=== PATIENT | male | born 1980 | race Caucasian/White ===

== ENCOUNTER 2017-05-05 11:11 | Outpatient (RCR) | payer OTHER | END 2017-05-05 12:12 | disposition home or self-care (01) | PROVIDERS: ATTEND Orthopaedic Surgery | DX: S92.352D Displaced fracture of fifth metatarsal bone, left foot, subsequent encounter for fracture with routine healing (principal); S92.342D Displaced fracture of fourth metatarsal bone, left foot, subsequent encounter for fracture with routine healing; S92.332D Displaced fracture of third metatarsal bone, left foot, subsequent encounter for fracture with routine healing; S92.322D Displaced fracture of second metatarsal bone, left foot, subsequent encounter for fracture with routine healing; V89.2XXD Person injured in unspecified motor-vehicle accident, traffic, subsequent encounter ==

== ENCOUNTER → 2018-09-25 | Outpatient (CLI) | payer OTHER | LOC: SLEEP 16:43 | PROVIDERS: ATTEND Otolaryngology Otolaryngology/Facial Plastic Surgery | DX: G47.33 Obstructive sleep apnea (adult) (pediatric) (principal) ==

== ENCOUNTER 2021-09-09 20:01 | Emergency (ER) | payer OTHER ==
[~2021-09-09] VITALS: Ht 188 cm; Wt 131.5 kg
--- NOTE | 2021-09-09 21:03 | ED General ---
General Stated Complaint: CHRONES FLARE UP History of Present Illness Date Seen by Provider: Sep 09, 2021 Time Seen by Provider: 20:58 Initial Comments 40 yr M with PMH of Crohn's Disease/ Hemicolectomy in 2000/ [employer] in 2008/ HTN, is here with c/o LLQ pain which began yesterday and has progressively worsened. Pt thinks he is having a Crohn's flare up. Pt has associated nausea and vomiting, and has noticed dark colored urine. He has not been drinking enough water. Denies chest pain, fever, chills, diarrhea, c onstipation. Allergies and Home Medications Allergies Coded Allergies: hydrocortisone (Verified Allergy, Unknown, 09/09/21) Patient Home Medication List Home Medication List Reviewed: Yes [hydrocortisone] , (Reported) Entered as Reported by: AYUSH DSOUZA MD on 09/09/212111 Last Action: New Order Review of Systems Review of Systems Constitutional: no symptoms reported EENTM: no symptoms reported Respiratory: no symptoms reported Cardiovascular: no symptoms reported Gastrointestinal: LLQ, abdominal pain (LLQ), nausea, vomiting Genitourinary: no symptoms reported Musculoskeletal: no symptoms reported Skin: no symptoms reported Psychiatric/Neurological: No Symptoms Reported Hematologic/Lymphatic: No Symptoms Reported Immunological/Allergic: no symptoms reported Physical Exam Vital Signs Vital Signs - First Documented 09/09/21 20:57 Temp 36.8 Pulse 83 Resp 18 B/P (MAP) 179/108 (131) Pulse Ox 97 O2 Delivery Room Air Capillary Refill : Height, Weight, BMI Height: '" Weight: lbs. oz. kg; BMI Method: General Appearance: WD/WN, Mild Distress HEENT: PERRL/EOMI Neck: Full Range of Motion, Normal Inspection, Non Tender, Supple Respiratory: Chest Non Tender, Lungs Clear, Normal Breath Sounds Cardiovascular: Regular Rate, Rhythm, No Edema Gastrointestinal: Normal Bowel Sounds, No Organomegaly, No Pulsatile Mass, Soft, Tenderness (LLQ) Back: Normal Inspection, No CVA Tenderness, No Vertebral Tenderness Neurologic/Psychiatric: Alert, Oriented x3, No Motor/Sensory Deficits, Normal Mood/Affect Skin: Normal Color Focused Exam Lactate Level 09/09/21 21:30: Lactic Acid Level 2.48*H 09/09/21 23:47: Lactic Acid Level 2.40*H Lactic Acid Level Laboratory Tests Test 09/09/21 21:30 09/09/21 23:47 Lactic Acid Level 2.48 MMOL/L (0.50-2.00) *H 2.40 MMOL/L (0.50-2.00) *H Progress/Results/Core Measures Suspected Sepsis SIRS Temperature: Pulse: Respiratory Rate: Laboratory Tests 09/09/21 21:30: White Blood Count 12.4H Blood Pressure / Mean: 09/09/21 21:30: Lactic Acid Level 2.48*H 09/09/21 23:47: Lactic Acid Level 2.40*H Laboratory Tests 09/09/21 21:30: Creatinine 1.30, Platelet Count 275, Total Bilirubin 0.6 Results/Orders Lab Results Laboratory Tests Test 09/09/21 21:30 09/09/21 22:23 09/09/21 23:47 Range/Units White Blood Count 12.4 H 4.3-11.0 10^3/uL Red Blood Count 4.54 4.30-5.52 10^6/uL Hemoglobin 14.0 13.3-17.7 g/dL Hematocrit 41 40-54 % Mean Corpuscular Volume 90 80-99 fL Mean Corpuscular Hemoglobin 31 25-34 pg Mean Corpuscular Hemoglobin Concent 34 32-36 g/dL Red Cell Distribution Width 13.2 10.0-14.5 % Platelet Count 275 130-400 10^3/uL Mean Platelet Volume 9.8 9.0-12.2 fL Immature Granulocyte % (Auto) 0 % Neutrophils (%) (Auto) 78 H 42-75 % Lymphocytes (%) (Auto) 14 12-44 % Monocytes (%) (Auto) 6 0-12 % Eosinophils (%) (Auto) 1 0-10 % Basophils (%) (Auto) 1 0-10 % Neutrophils # (Auto) 9.6 H 1.8-7.8 10^3/uL Lymphocytes # (Auto) 1.8 1.0-4.0 10^3/uL Monocytes # (Auto) 0.8 0.0-1.0 10^3/uL Eosinophils # (Auto) 0.1 0.0-0.3 10^3/uL Basophils # (Auto) 0.1 0.0-0.1 10^3/uL Immature Granulocyte # (Auto) 0.1 0.0-0.1 10^3/uL Sodium Level 145 135-145 MMOL/L Potassium Level 3.3 L 3.6-5.0 MMOL/L Chloride Level 104 98-107 MMOL/L Carbon Dioxide Level 22 21-32 MMOL/L Anion Gap 19 H 5-14 MMOL/L Blood Urea Nitrogen 10 7-18 MG/DL Creatinine 1.30 0.60-1.30 MG/DL Estimat Glomerular Filtration Rate 70 BUN/Creatinine Ratio 8 Glucose Level 115 H 70-105 MG/DL Lactic Acid Level 2.48 *H 2.40 *H 0.50-2.00 MMOL/L Calcium Level 9.3 8.5-10.1 MG/DL Corrected Calcium 9.0 8.5-10.1 MG/DL Magnesium Level 1.9 1.6-2.4 MG/DL Total Bilirubin 0.6 0.1-1.0 MG/DL Aspartate Amino Transf (AST/SGOT) 34 5-34 U/L Alanine Aminotransferase (ALT/SGPT) 40 0-55 U/L Alkaline Phosphatase 88 40-136 U/L Troponin I < 0.028 <0.028 NG/ML Total Protein 8.0 6.4-8.2 GM/DL Albumin 4.4 3.2-4.5 GM/DL Lipase 25 8-78 U/L Procalcitonin 0.04 <0.10 NG/ML Urine Color YELLOW Urine Clarity CLEAR Urine pH 6.0 5-9 Urine Specific [place] 1.020 1.016-1.022 Urine Protein NEGATIVE NEGATIVE Urine Glucose (UA) NEGATIVE NEGATIVE Urine Ketones NEGATIVE NEGATIVE Urine Nitrite NEGATIVE NEGATIVE Urine Bilirubin NEGATIVE NEGATIVE Urine Urobilinogen 0.2 < = 1.0 MG/DL Urine Leukocyte Esterase NEGATIVE NEGATIVE Urine RBC (Auto) 2+ H NEGATIVE Urine RBC RARE /HPF Urine WBC NONE /HPF Urine Squamous Epithelial Cells NONE /HPF Urine Crystals NONE /LPF Urine Bacteria TRACE /HPF Urine Casts PRESENT /LPF Urine Hyaline Casts RARE /LPF Urine Mucus NEGATIVE /LPF Urine Culture Indicated NO Urine Opiates Screen POSITIVE H NEGATIVE Urine Oxycodone Screen NEGATIVE NEGATIVE Urine Methadone Screen NEGATIVE NEGATIVE Urine Propoxyphene Screen NEGATIVE NEGATIVE Urine Barbiturates Screen NEGATIVE NEGATIVE Ur Tricyclic Antidepressants Screen NEGATIVE NEGATIVE Urine Phencyclidine Screen NEGATIVE NEGATIVE Urine Amphetamines Screen NEGATIVE NEGATIVE Urine Methamphetamines Screen NEGATIVE NEGATIVE Urine Benzodiazepines Screen NEGATIVE NEGATIVE Urine Cocaine Screen NEGATIVE NEGATIVE Urine Cannabinoids Screen NEGATIVE NEGATIVE My Orders Orders - AYUSH DSOUZA MD Cbc With Automated Diff (09/09/21 21:14) Comprehensive Metabolic Panel (09/09/21 21:14) Drug Screen Stat (Urine) (09/09/21 21:14) Lactic Acid Analyzer (09/09/21 21:14) Lipase (09/09/21 21:14) Magnesium (09/09/21 21:14) Procalcitonin (Pct) (09/09/21 21:14) Ua Culture If Indicated (09/09/21 21:14) Troponin I Nata (09/09/21 21:14) Ct Abdomen/Pelvis W (09/09/21 21:15) Ed Iv/Invasive Line Start (09/09/21 21:15) Ed Iv/Invasive Line Start (09/09/21 21:29) Ns Iv 1000 Ml (Sodium Chloride 0.9%) (09/09/21 21:30) Ondansetron Injection (Zofran Injectio (09/09/21 21:30) Famotidine Injection (Pepcid Injection) (09/09/21 21:29) Morphine Injection (Morphine Injection (09/09/21 21:30) Iohexol Injection (Omnipaque 350 Mg/Ml 1 (09/09/21 22:00) Received Contrast (Hold Metformin- Contr (09/09/21 22:00) Sodium Chloride Flush (Catheter Flush Sy (09/09/21 22:00) Ns (Ivpb) (Sodium Chloride 0.9% Ivpb Bag (09/09/21 22:00) Blood Culture (09/09/21 22:20) Ceftriaxone 1 Gm Pre-Mix (Rocephin 1 Gm (09/09/21 23:30) Medications Given in ED Current Medications Medications Dose Ordered Sig/Jazmin Route Start Time Stop Time Status Last Admin Dose Admin Ceftriaxone Sodium/Dextrose 50 ml @ 100 mls/hr ONCE ONCE IV 09/09/21 23:30 09/09/21 23:59 DC 09/09/21 23:45 100 MLS/HR Iohexol 100 ml ONCE ONCE IV 09/09/21 22:00 09/09/21 22:01 DC 09/09/21 22:04 100 ML Ondansetron HCl 4 mg ONCE ONCE IVP 09/09/21 21:30 09/09/21 21:31 DC 09/09/21 21:40 4 MG Sodium Chloride 100 ml ONCE ONCE IV 09/09/21 22:00 09/09/21 22:01 DC 09/09/21 22:04 80 ML Vital Signs/I&O 09/09/21 20:57 Temp 36.8 Pulse 83 Resp 18 B/P (MAP) 179/108 (131) Pulse Ox 97 O2 Delivery Room Air Capillary Refill : Progress Note : Progress Note 1. LLQ ABDOMINAL PAIN: LEFT NEPHROLITHIASIS WITH LEFT SIDED HYDRONEPHROSIS: - CT ABD : left proximal ureteral stone, 2.9mm, causing hydronephrosis - CBC: WBC is elevated at 12.4 with a left shift - Lactic acid elevated at 2.45 - UA is positive for RBC's only - Blood cultures sent - Ceftriaxone 1gm iv STAT - NS IVF bolus/ Zofran 4mg iv - Morphine 2mg iv STAT and Toradol for pain control - Discussed with out hospitalist, who is also pt's PCP and we cannot admit since we do not have an urologist who is personal injury attorney to see this pt in the morning. Recommended to transfer. Called multiple hospitlas but no one has a bed, finally [facility] accepted for admission to med-surg. Diagnostic Imaging Diagonstic Imaging: CT Plain Films/CT/US/NM/MRI: abdomen Comments [facility] [place], [place] NAME: LIDYA LOWE [facility] REC#: [id number] PT STATUS: REG ER : 1980 PHYSICIAN: AYUSH DSOUZA MD ADMIT DATE: 09/09/21/ER Draft Date of Exam:09/09/21 CT ABDOMEN/PELVIS W PROCEDURE: CT abdomen and pelvis with contrast. TECHNIQUE: Multiple contiguous axial images were obtained through the abdomen and pelvis after administration of intravenous contrast. Auto Exposure Controls were utilized during the CT exam to meet ALARA standards for radiation dose reduction. All CT scans use one or more of the following dose optimizing techniques: automated exposure control, MA and/or KvP adjustment based on patient size and exam type or iterative reconstruction. INDICATION: Patient reports history of Crohn's disease and believing he is having flareup. COMPARISON: None. FINDINGS: There are surgical changes at the ileocecal junction, presumed prior resection. The residual small bowel showed no findings of active inflammation. No evidence for fistulous disease. No findings of anastomotic leak or obstruction. No focal small or large bowel wall inflammatory changes are found and there is no perienteric or pericolonic edema. The appendix is presumed surgically absent. There is no abnormal fecal loading. There is no pneumatosis or free gas. Stomach appeared unremarkable. There is noninflamed and nonobstructive duodenal diverticulum at the proximal transverse level. This patient has mild left hydronephrosis which is secondary to a calculus measuring 2.9 mm in maximal dimension and the proximal ureter at the level of the L3 inferior endplate. There is no urinoma. There is some left perinephric and intrarenal edema associated with this stone. No abscess or acute fluid collection. The unobstructed right kidney and ureter appear normal. The urinary bladder is normal. IMPRESSION: 1. Mild left hydroureteronephrosis owing to a 2.9 mm proximal left ureteral stone. 2. Postoperative changes to the bowel with no findings of active hollow visceral inflammatory process, abscess, obstruction, stricture or fistulous disease. Dictated on workstation # [id number] Dict: 09/09/212205 Trans: 09/09/212216 [facility] [id number] Interpreted by: CHARMAINE MOE Electronically signed by: Departure Impression Primary Impression: Left nephrolithiasis Additional Impressions: Hydronephrosis, left Sepsis Disposition: [facility] Condition: Stable Transfer Transfer Reason: Exceeds level of care Time Spoke to Accepting Phy: 00:20 Transfer Progress Notes DIscussed with Susan Stein NP and accepted for transfer Transfer Facility: [facility] Method of Transfer: Private Vehicle Departure-Patient Inst. Referrals: TENNILLE MCCRARY DO (PCP/Family) Primary Care Physician AYUSH DSOUZA MD Sep 09, 2021 21:02
[2021-09-09] MEDS ORDERED: hydrocortisone (21:12)
[2021-09-09] MEDS ORDERED: FAMOTIDINE 20MG/2ML IV (PEPCID) IV STA (21:29)
[2021-09-09] MEDS ORDERED: ONDANSETRON 4 MG/2 ML (SDV) Z0FRAN IVP ONE (21:30)
[2021-09-09] MEDS ORDERED: morphine INJ 10 MG/ML 1ML (SYR OR VIAL) IVP STA (21:30)
[2021-09-09] MEDS ORDERED: NS IV 1000 ML 1,000 ML IV SCH (21:30)
[2021-09-09 21:39] LABS: BASOPHILS # (AUTO) 0.1 10^3/uL (0.0-0.1); BASOPHILS % (AUTO) 1 % (0-10); EOSINOPHILS # (AUTO) 0.1 10^3/uL (0.0-0.3); EOSINOPHILS % (AUTO) 1 % (0-10); HEMATOCRIT 41 % (40-54); LYMPHOCYTES # (AUTO) 1.8 10^3/uL (1.0-4.0); LYMPHOCYTES % (AUTO) 14 % (12-44); MEAN CORPUSCULAR HEMOGLOBIN 31 pg (25-34); MEAN CORPUSCULAR HGB CONC 34 g/dL (32-36); MEAN CORPUSCULAR VOLUME 90 fL (80-99); MEAN PLATELET VOLUME 9.8 fL (9.0-12.2); MONOCYTES # (AUTO) 0.8 10^3/uL (0.0-1.0); MONOCYTES % (AUTO) 6 % (0-12); NEUTROPHILS # (AUTO) 9.6 10^3/uL (1.8-7.8); NEUTROPHILS % (AUTO) 78 % (42-75); PLATELET COUNT 275 10^3/uL (130-400); WHITE BLOOD COUNT 12.4 10^3/uL (4.3-11.0)
[2021-09-09 22:00] LABS: ALANINE AMINOTRANSFERASE 40 U/L (0-55); ALBUMIN 4.4 GM/DL (3.2-4.5); ALKALINE PHOSPHATASE 88 U/L (40-136); BILIRUBIN,TOTAL 0.6 MG/DL (0.1-1.0); BUN/CREATININE RATIO 8; CALCIUM 9.3 MG/DL (8.5-10.1); CARBON DIOXIDE 22 MMOL/L (21-32); CHLORIDE 104 MMOL/L (98-107); GFR ESTIMATED 70; GLUCOSE 115 MG/DL (70-105); LIPASE 25 U/L (8-78); MAGNESIUM 1.9 MG/DL (1.6-2.4); POTASSIUM 3.3 MMOL/L (3.6-5.0); SODIUM 145 MMOL/L (135-145)
[2021-09-09] MEDS ORDERED: IOHEXOL 350 MG/ML 100 ML (OMNIPAQUE 350) VIAL IV ONE (22:00)
[2021-09-09] MEDS ORDERED: HOLD METFORMIN - RECEIVED CONTRAST 20 ML VIAL IV SCH (22:00)
[2021-09-09] MEDS ORDERED: NS 100 ML (IVPB) BAG IV ONE (22:00)
[2021-09-09] MEDS ORDERED: CATHETER FLUSH 10 ML SYR IV PRN (22:00)
--- NOTE | 2021-09-09 22:18 | Diagnostic Imaging Report ---
PROCEDURE: CT abdomen and pelvis with contrast. TECHNIQUE: Multiple contiguous axial images were obtained through the abdomen and pelvis after administration of intravenous contrast. Auto Exposure Controls were utilized during the CT exam to meet ALARA standards for radiation dose reduction. All CT scans use one or more of the following dose optimizing techniques: automated exposure control, MA and/or KvP adjustment based on patient size and exam type or iterative reconstruction. INDICATION: Patient reports history of Crohn's disease and believing he is having flareup. COMPARISON: None. FINDINGS: There are surgical changes at the ileocecal junction, presumed prior resection. The residual small bowel showed no findings of active inflammation. No evidence for fistulous disease. No findings of anastomotic leak or obstruction. No focal small or large bowel wall inflammatory changes are found and there is no perienteric or pericolonic edema. The appendix is presumed surgically absent. There is no abnormal fecal loading. There is no pneumatosis or free gas. Stomach appeared unremarkable. There is noninflamed and nonobstructive duodenal diverticulum at the proximal transverse level. This patient has mild left hydronephrosis which is secondary to a calculus measuring 2.9 mm in maximal dimension and the proximal ureter at the level of the L3 inferior endplate. There is no urinoma. There is some left perinephric and intrarenal edema associated with this stone. No abscess or acute fluid collection. The unobstructed right kidney and ureter appear normal. The urinary bladder is normal. IMPRESSION: 1. Mild left hydroureteronephrosis owing to a 2.9 mm proximal left ureteral stone. 2. Postoperative changes to the bowel with no findings of active hollow visceral inflammatory process, abscess, obstruction, stricture or fistulous disease. Dictated by: Dictated on workstation # [id number]
[2021-09-09 22:33] LABS: BILIRUBIN,URINE NEGATIVE (NEGATIVE); CLARITY,URINE CLEAR; COLOR,URINE YELLOW; GLUCOSE, URINE (UA) NEGATIVE (NEGATIVE); KETONES,URINE NEGATIVE (NEGATIVE); LEUKOCYTE ESTERASE ,URINE NEGATIVE (NEGATIVE); NITRITE,URINE NEGATIVE (NEGATIVE); PROTEIN,URINE NEGATIVE (NEGATIVE)
[2021-09-09 22:46] LABS: BACTERIA,URINE TRACE /HPF; HYALINE CASTS, URINE RARE /LPF; RBC,URINE RARE /HPF
[2021-09-09 23:03] LABS: AMPHETAMINE SCREEN, URINE NEGATIVE (NEGATIVE); BARBITURATE SCREEN URINE NEGATIVE (NEGATIVE); BENZODIAZEPINES SCREEN URINE NEGATIVE (NEGATIVE); CANNABINOID SCREEN, URINE NEGATIVE (NEGATIVE); COCAINE SCREEN URINE NEGATIVE (NEGATIVE); METHADONE STAT NEGATIVE (NEGATIVE); OPIATE SCREEN URINE POSITIVE (NEGATIVE); OXYCODONE STAT NEGATIVE (NEGATIVE); PROPOXYPHENE STAT NEGATIVE (NEGATIVE); TRICYCLIC ANTIDEPRESSANTS SCRE NEGATIVE (NEGATIVE)
[2021-09-09] MEDS ORDERED: cefTRIAXone 1 GM PRE-MIX 50 ML IV ONE (23:30)
[2021-09-10] MEDS ORDERED: KETOROLAC 30 MG/ML VIAL IM ONE (01:00)
[2021-09-10] MEDS ORDERED: KETOROLAC 30 MG/ML VIAL IVP ONE (01:15)
[2021-09-10 01:18] VITALS: BP 147/99
== END 2021-09-10 01:19 | disposition short-term general hospital (02) ==
LOC: EDUNIT# 20:01 → ER 20:04
DX: A41.9 Sepsis, unspecified organism (principal); N13.2 Hydronephrosis with renal and ureteral calculous obstruction
CPT/HCPCS: 36415; 74177; 80053; 80306; 81000; 83605; 83690; 83735; 84145; 84484; 85025; 87040

== ENCOUNTER → 2021-09-20 | Outpatient (CLI) | payer OTHER ==
[~2021-09-20] MED LIST: hydrocortisone
--- NOTE | 2021-09-20 18:04 | Diagnostic Imaging Report ---
Indication: Left flank pain AP abdominal views obtained at 05:18 p.m. Abdominal bowel gas pattern appears unremarkable. There is no sign of bowel obstruction or ileus. There are no suspicious calcifications overlying the renal shadows. There is a 3 mm calcification overlying the left mid pelvis, which likely corresponds to the stone which had been in the upper ureter on the previous CT of 09/09/2021. IMPRESSION: Unremarkable bowel gas pattern. There is a calcification measuring 3 mm in the left mid pelvis, this likely corresponds to the stone which had been in the upper ureter on the previous study, therefore it has passed down to the lower ureter at this time. Suggest continued follow-up. Dictated by: Dictated on workstation # [id number]
== END ==
LOC: RAD 17:04
PROVIDERS: ATTEND Urology
DX: N20.1 Calculus of ureter (principal)
CPT/HCPCS: 74018

== ENCOUNTER → 2021-12-17 | Outpatient (CLI) | payer OTHER ==
--- NOTE | 2021-12-17 18:23 | Diagnostic Imaging Report ---
INDICATION: Wrist pain. No specific injury. EXAMINATION: Right wrist 12/09/2021. FINDINGS: 3 views of the wrist. There is no evidence for an acute fracture or dislocation. The joint spaces are well maintained. There is no significant soft tissue swelling. IMPRESSION: No acute process. Dictated by: Dictated on workstation # [id number]
== END ==
LOC: LAB 16:11
PROVIDERS: ATTEND Internal Medicine
DX: M25.531 Pain in right wrist (principal)
CPT/HCPCS: 73110